=== PATIENT | male | born 1970 | race Two or more races ===

== ENCOUNTER 2022-07-31 06:45 | Emergency (ER) | payer OTHER ==
[2022-07-31] MEDS ORDERED: Acetaminophen 325 MG Tab PO ONE (07:21)
[2022-07-31] MEDS ORDERED: Ketorolac 30 MG/ML SDV IM ONE (07:21)
[2022-07-31] MEDS ORDERED: Amoxicillin/Clavulanate K 875-125 MG Tab PO ONE (07:21)
== END 2022-07-31 07:52 | disposition home or self-care (01) ==
LOC: MW.ED 06:45
DX: K08.89 Other specified disorders of teeth and supporting structures (principal); Z79.899 Other long term (current) drug therapy
CPT/HCPCS: 96372; 99282; A9270; J1885

== ENCOUNTER 2025-01-27 10:38 | Emergency (ER) | payer SELFPAY ==
[2025-01-27] MEDS: Ketorolac 30 MG/ML SDV IM ONE (11:07)
== END 2025-01-27 11:43 | disposition home or self-care (01) ==
LOC: MW.ED 10:38
DX: M66.822 Spontaneous rupture of other tendons, left upper arm (principal); F17.200 Nicotine dependence, unspecified, uncomplicated
CPT/HCPCS: 73060; 96372; 99283; J1885

== ENCOUNTER 2025-03-01 12:05 | Emergency (ER) | payer SELFPAY ==
[2025-03-01 12:31] LABS: BASOPHILS ABSOLUTE AUTO 0.05 K/uL (0.00-0.20); BASOPHILS PERCENT AUTO 0.6 % (0.0-1.0); EOSINOPHILS ABSOLUTE AUTO 0.22 K/uL (0.00-0.45); EOSINOPHILS PERCENT AUTO 2.8 % (0.0-6.0); IMMATURE GRAN ABSOLUTE AUTO 0.03 K/uL (0.00-0.05); IMMATURE GRAN PERCENT AUTO 0.4 % (0.0-0.4); LYMPHOCYTES ABSOLUTE AUTO 2.43 K/uL (1.00-4.80); LYMPHOCYTES PERCENT AUTO 30.9 % (24.0-44.0); MEAN PLATELET VOLUME 9.8 fL (9.4-12.4); MONOCYTES ABSOLUTE AUTO 0.93 K/uL (0.00-0.80); MONOCYTES PERCENT AUTO 11.8 % (0.0-8.0); NEUTROPHILS ABSOLUTE AUTO 4.20 K/uL (1.80-7.70); NEUTROPHILS PERCENT AUTO 53.5 % (41.0-71.0); NRBC ABSOLUTE 0.00 K/uL (0.00-0.02); NRBC PERCENT 0.0 /100WBC (0.0-0.2); PLATELET COUNT,PLT 201 K/uL (150-400); RED BLOOD CELL COUNT 5.67 M/uL (4.52-5.90); WHITE BLOOD CELL COUNT,WBC 7.86 K/uL (3.9-11.3)
[2025-03-01 13:05] LABS: A/G RATIO 1.1 (0.9-1.6); ALANINE AMINOTRANSFERASE,ALT 51.0 IU/L (14-63); ASPARTATE AMNIOTRANSFERASE,AST 22.0 IU/L (15-37); BILIRUBIN TOTAL 0.9 mg/dL (0.2-1.0); BLOOD UREA NITROGEN,BUN 14.0 mg/dL (7.0-18.0); CARBON DIOXIDE,CO2 26.0 mmol/L (21.0-32.0); CHLORIDE,CL 105.0 mmol/L (98-107); CREATININE 0.9 mg/dL (0.8-1.3); EST CRCL DRUG DOSING (CG) 87.61 mL/min; GLUCOSE RANDOM 107.0 mg/dL (74-106); POTASSIUM,K 4.0 mmol/L (3.5-5.1); PRO B-TYPE NATRIUR PEPT,BNPPRO 23.0 pg/mL (0-125); PROTEIN TOTAL,TP 7.0 g/dL (6.4-8.2); SODIUM,NA 140.0 mmol/L (136-148); TSH ULTRASENSITIVE 1.23 uIU/mL (0.36-3.74)
[2025-03-01 13:21] LABS: ESTIMATED GFR 100.0 mL/min (>60)
== END 2025-03-01 14:21 | disposition home or self-care (01) ==
LOC: MW.ED 12:05
DX: I10 Essential (primary) hypertension (principal); F17.200 Nicotine dependence, unspecified, uncomplicated; Z75.3 Unavailability and inaccessibility of health-care facilities
CPT/HCPCS: 36415; 71045; 80053; 83735; 83880; 84443; 84484; 85025; 85379; 93005; 96360; 99284; A9270; J7030; 93010; 99283